=== PATIENT | female | born 1975 ===

== ENCOUNTER → 2023-01-01 | Outpatient (CLI) | payer BC | END | disposition home or self-care (01) | LOC: LAB SHORT 18:32 → LAB 18:32 | DX: B37.41 Candidal cystitis and urethritis (principal) | CPT/HCPCS: 87086; 87186 ==

== ENCOUNTER → 2023-09-14 | Outpatient (CLI) | payer OTHER ==
[~2023-09-14] MED LIST: BUPROPION XL150 M1 PO; BUTALB-ACETAMI1 EAC5 PO; Bentyl20 MG PO; IMITREX100 MG PO; LAMOTRIGINE100 M1 PO; ONDA4ODT MM; VENLAFAXINE HCL50 MG PO; ZONI100 PO
[2023-09-14 19:54] LABS: Percent Saturation 24.3 % (15.0-50.0)
== END ==
LOC: LAB 17:22 → LAB SHORT 17:22
PROVIDERS: Internal Medicine Hematology & Oncology
DX: D50.0 Iron deficiency anemia secondary to blood loss (chronic) (principal)
CPT/HCPCS: 82728; 83540; 83550

== ENCOUNTER → 2023-10-04 | Outpatient (CLI) | payer OTHER ==
[2023-10-04 12:53] LABS: Source, Urine Clean Catch
[2023-10-04 18:05] LABS: Appearance, Urine Clear (Clear); Bilirubin, Urine Neg (Neg); Blood, Urine Neg (Neg); Color, Urine Yellow (P-Yellow); Glucose Qualitative, Urine Neg (Neg); Ketones, Urine Neg (Neg); Leukocyte Esterase, Urine Neg (Neg); Nitrite, Urine Neg (Neg); Protein, Urine Neg (Neg); Urobilinogen, Urine NORM (Normal)
== END ==
LOC: LAB 10:54 → LAB SHORT 10:54
PROVIDERS: Family Medicine
DX: N39.0 Urinary tract infection, site not specified (principal)
CPT/HCPCS: 81003